=== PATIENT | male | born 2000 | race Caucasian/White ===

== ENCOUNTER → 2023-06-11 | Outpatient (CLI) | payer SELFPAY ==
--- NOTE | 2023-06-11 13:00 | CT_ITS ---
STUDY: CT ABDOMEN AND PELVIS WITH CONTRAST REASON FOR EXAM: Male, 22 years old. RLQ PAIN RADIATION DOSAGE (If Supplied By Facility): CTDIvol = ( 7.77 ) mGy, DLP = ( 455.68 ) mGycm TECHNIQUE: Transaxial images were obtained from the dome of the diaphragm to the symphysis pubis with oral contrast. Oral and amp; IV Gastrografin and amp; 100mL Isovue-300 was administered. Sagittal and coronal images were reconstructed. Individualized dose optimization techniques were used for this CT. COMPARISON: None. FINDINGS: The visualized lung bases are unremarkable. The visualized portions of the heart are within normal limits. Normal liver. Normal gallbladder and extrahepatic biliary system. Normal spleen. Normal pancreas. Normal bilateral adrenal glands. Normal right kidney. Normal left kidney. Normal visualized stomach. Inflammatory changes with thickening of the terminal ileum. Crohn''s disease should be ruled out. Diffuse circumferential mural thickening of the ascending colon worse in the region of the cecum. Small lymph nodes are seen in the mesentery in the right lower quadrant suggestive of mesenteric adenitis. The appendix is visualized and appears normal. Normal abdominal aorta. Normal inferior vena cava. Normal retroperitoneum. Normal urinary bladder. Normal abdominal wall. Normal osseous structures. CT/Abdomen/Pelvis WITH Contrast IMPRESSION: Findings in keeping with a colitis involving the cecum and ascending colon. There is also evidence of inflammatory change in the terminal ileum. Crohn''s disease should be ruled out. Electronically Signed: Mariano Chacon MD at 15:25 EST ,
== END | disposition home or self-care (01) ==
DX: R10.31 Right lower quadrant pain (principal)
CPT/HCPCS: 74177; Q9967